=== PATIENT | female | born 1965 | race Caucasian/White ===

== ENCOUNTER 2017-01-16 12:57 | Emergency (ER) | payer OTHER ==
[~2017-01-16 12:57] MED LIST: AMIT25TA9; CYCL-117; MELO-216; TRIA1CAP70
[2017-01-16] MEDS ORDERED: KETOROLAC 30 MG INJ IM STA (13:17)
[2017-01-16] MEDS ORDERED: ALPRAZOLAM 1 MG TAB PO ONE (13:30)
--- NOTE | 2017-01-16 14:25 | RADRPT ---
PROCEDURE: XR Chest. CLINICAL INDICATION: chest pain TECHNIQUE: Single frontal view of the chest was obtained COMPARISON: None FINDINGS: The heart and mediastinum are within normal limits. The lungs are clear. There is no pleural effusion or pneumothorax. There is metallic hardware in the thoracic spine. RPTAT: AA IMPRESSION: No acute disease. .Cedric Headley MD, MD Date Time Electronically viewed and signed by .Cedric Headley MD, on 01/16/2017 14:25 .S/
--- NOTE | 2017-01-16 14:29 | RADRPT ---
PROCEDURE: XR Lumbar Spine. CLINICAL INDICATION: back pain TECHNIQUE: AP, lateral and cone-down lateral view of the lumbar spine were obtained. COMPARISON: No prior studies are available for comparison. FINDINGS: There are mild degenerative changes of the lumbar spine at L5-S1. There is disk space narrowing, coburn bchondral sclerosis and spondylosis. There is normal vertebral mineralization and alignment. No acute fracture is seen. There is no subluxation of vertebral bodies. The posterior elements are unremarkable. The soft tissues appear normal. There is a partially visualized metallic hardware in the thoracic spine. RPTAT: AA IMPRESSION: Mild degenerative changes of the lumbar spine at L5-S1. .Cedric Headley MD, Date Time Electronically viewed and signed by .Cedric Headley MD, on 01/16/2017 14:29 .S/
[2017-01-16] MEDS ORDERED: CYCL-319 PO (14:57)
[2017-01-16] MEDS ORDERED: MELO-216 PO (14:58)
[2017-01-16] MEDS ORDERED: CARI350T PO (15:40)
[2017-01-16] MEDS ORDERED: IBUP-1542 PO (15:40)
[2017-01-16 15:49] VITALS: BP 139/66; PULSE 81; RESP 16; TEMP 98.6
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
== END 2017-01-16 16:37 | disposition home or self-care (01) ==
LOC: E/R 12:57
DX: S33.5XXA Sprain of ligaments of lumbar spine, initial encounter (principal); R40.2252 Coma scale, best verbal response, oriented, at arrival to emergency department; S13.9XXA Sprain of joints and ligaments of unspecified parts of neck, initial encounter; R40.2142 Coma scale, eyes open, spontaneous, at arrival to emergency department; R40.2362 Coma scale, best motor response, obeys commands, at arrival to emergency department; R07.9 Chest pain, unspecified; V49.50XA Passenger injured in collision with unspecified motor vehicles in traffic accident, initial encounter
CPT/HCPCS: 71010; 72100; 96372; J1885; Z7502; Z7610